=== PATIENT | female | born 1985 | race African-American/Black ===

== ENCOUNTER 2019-03-14 15:24 | Inpatient (IN) | payer MEDICAID, OTHER ==
[~2019-03-14] VITALS: Ht 170.2 cm; Wt 68.2 kg
[~2019-03-14 15:24] MED LIST: ATAZ150 PO; GABA-531 PO; QUET200T PO; RITO100C PO; TRUVT PO
[2019-03-14] MEDS ORDERED: ZOLPIDEM TARTRATE 10 MG TABLET PO PRN (18:15)
[2019-03-14] MEDS ORDERED: OLANZapine 5 MG RAPDIS TABLET PO PRN (18:15)
[2019-03-14] MEDS ORDERED: LORazepam 2 MG TABLET PO PRN (18:15)
[2019-03-14 18:52] LABS: AMPHET/METH SCREEN,URINE POSITIVE (NEGATIVE); BARBITURATE SCREEN, URINE NEGATIVE (NEGATIVE); BENZODIAZEPINES SCREEN,URINE NEGATIVE (NEGATIVE); CANNABINOID SCREEN,URINE POSITIVE (NEGATIVE); COCAINE SCREEN,URINE NEGATIVE (NEGATIVE); METHADONE SCREEN, URINE NEGATIVE (NEGATIVE); OPIATE SCREEN,URINE NEGATIVE (NEGATIVE)
[2019-03-14 18:53] LABS: PHENCYCLIDINE SCREEN,URINE NEGATIVE (NEGATIVE)
[2019-03-14 19:38] LABS: APPEARANCE,URINE CLEAR (CLEAR); BILIRUBIN,URINE NEGATIVE (NEGATIVE); GLUCOSE, URINE (UA) NEGATIVE (NEGATIVE); KETONES,URINE TRACE mg/dL (NEGATIVE); LEUKOCYTE ESTERASE ,URINE MODERATE (NEGATIVE); NITRATE,URINE NEGATIVE (NEGATIVE); OCCULT BLOOD,URINE SMALL (NEGATIVE); PH,URINE 5.5 (5.0-8.0); PROTEIN,URINE NEGATIVE (NEGATIVE); UROBILINOGEN,URINE 0.2 mg/dL (<=1.0)
[2019-03-14 19:59] LABS: BACTERIA,URINE None Seen /HPF (None Seen); RBC,URINE 0-2 /HPF (0-2)
[2019-03-14 20:00] LABS: SQUAMOUS EPITHELIAL CELL,UR Few /LPF (None Seen)
[2019-03-14] MEDS ORDERED: LORazepam 2 MG/ML VIAL ONE (20:41)
[2019-03-14] MEDS ORDERED: DiphenhydrAMINE HCL 50 MG/ML VIAL ONE (20:41)
[2019-03-14] MEDS ORDERED: LORazepam 2 MG/ML VIAL IM ONE (20:45)
[2019-03-14] MEDS ORDERED: HALOPERIDOL LACTATE 5 MG/ML VIAL IM ONE (20:45)
[2019-03-14] MEDS ORDERED: DiphenhydrAMINE HCL 50 MG/ML VIAL IM ONE (20:45)
[2019-03-14] MEDS ORDERED: PNEUMOCOCCAL VACCINE POLYVALENT 0.5 ML VIAL [PPSV23] IM ONE (21:00)
[2019-03-14] MEDS: OLANZapine 7.5 MG TABLET PO SCH (21:00)
[2019-03-14] MEDS ORDERED: INFLUENZA VIRUS VACCINE QVS 2019-20 (3YR+)/PF 60 MCG/0.5 ML SYRINGE IM ONE (21:00)
[2019-03-15] MEDS: RITONAVIR 100 MG TABLET PO SCH ×2 (06:53→07:00)
[2019-03-15] MEDS: EMTRICITABINE/TENOFOVIR 200-300 MG TABLET PO SCH ×2 (06:54→07:00)
[2019-03-15] MEDS: ATAZANAVIR SULFATE 300 MG CAPSULE PO SCH (06:54)
[2019-03-15] MEDS: GABAPENTIN 300 MG CAPSULE PO SCH ×3 (08:28→17:41)
[2019-03-15] MEDS: SULFAMETHOX/TRIMETH DS 800-160 MG/TABLET PO SCH ×2 (08:28→17:41)
[2019-03-15] MEDS ORDERED: ACETAMINOPHEN 325 MG TABLET PO PRN (12:15)
[2019-03-15] MEDS ORDERED: LOPERAMIDE HCL 2 MG CAPSULE PO PRN (12:15)
[2019-03-15] MEDS ORDERED: MAGNESIUM HYDROXIDE SUSPENSION 30 ML UDCUP PO PRN (12:15)
[2019-03-15] MEDS ORDERED: GuaiFENesin/D-METHORPHAN [SUGAR-FREE] 200-20MG/10 ML SYRUP UDCUP PO PRN (12:15)
[2019-03-15] MEDS ORDERED: MAG HYDROX/AL HYDROX/SIMETH ES 30 ML SUSPENSION UDCUP PO PRN (12:15)
[2019-03-15] MEDS ORDERED: PROMETHAZINE HCL 25 MG TABLET PO PRN (12:15)
[2019-03-15] MEDS ORDERED: TUBERCULIN, PURIFIED PROTEIN DERIVATIVE 5 TU/0.1 ML SYRINGE ID ONE (12:15)
[2019-03-15] MEDS ORDERED: HydrOXYzine PAMOATE 50 MG CAPSULE PO PRN (12:15)
[2019-03-15 16:54] VITALS: BP 135/90
[2019-03-15] MEDS: THIAMINE HCL 100 MG TABLET PO SCH (17:41)
[2019-03-15] MEDS: OLANZapine 7.5 MG TABLET PO SCH (21:35)
[2019-03-16] MEDS: EMTRICITABINE/TENOFOVIR 200-300 MG TABLET PO SCH (06:57)
[2019-03-16] MEDS: RITONAVIR 100 MG TABLET PO SCH (06:57)
[2019-03-16] MEDS: ATAZANAVIR SULFATE 300 MG CAPSULE PO SCH (06:57)
[2019-03-16] MEDS: GABAPENTIN 300 MG CAPSULE PO SCH ×3 (08:24→16:26)
[2019-03-16] MEDS: NALTREXONE HCL 50 MG TABLET PO SCH (08:25)
[2019-03-16] MEDS: THIAMINE HCL 100 MG TABLET PO SCH ×2 (08:25→16:26)
[2019-03-16] MEDS: SULFAMETHOX/TRIMETH DS 800-160 MG/TABLET PO SCH ×2 (08:25→16:26)
[2019-03-16] MEDS: FOLIC ACID 1 MG TABLET PO SCH (08:25)
[2019-03-16] MEDS: MULTIVITAMINS WITH MINERALS, THERAPEUTIC TABLET PO SCH (08:25)
[2019-03-16 18:17] VITALS: BP 140/92
[2019-03-16] MEDS: OLANZapine 10 MG TABLET PO SCH (20:39)
[2019-03-17 05:37] VITALS: BP 131/87
[2019-03-17] MEDS: ATAZANAVIR SULFATE 300 MG CAPSULE PO SCH (06:47)
[2019-03-17] MEDS: EMTRICITABINE/TENOFOVIR 200-300 MG TABLET PO SCH (06:47)
[2019-03-17] MEDS: RITONAVIR 100 MG TABLET PO SCH (06:47)
[2019-03-17 07:36] LABS: BASOPHILS % (AUTO) 0.3 % (0.0-2.0); EOSINOPHILS % (AUTO) 3.7 % (1.0-6.0); HEMATOCRIT 35.7 % (36-46); HEMOGLOBIN 11.9 g/dL (12.0-16.0); LYMPHOCYTES # (AUTO) 4.4 K/uL (1.0-4.8); LYMPHOCYTES % (AUTO) 64.3 % (22.0-44.0); MEAN CORPUSCULAR HEMOGLOBIN 30.1 pg (26.0-34.0); MEAN CORPUSCULAR HGB CONC 33.4 G/dL (31.0-37.0); MEAN CORPUSCULAR VOLUME 90 fL (80-100); MONOCYTES # (AUTO) 0.4 K/uL (0.1-1.0); MONOCYTES % (AUTO) 5.6 % (2.0-9.0); NEUTROPHILS # (AUTO) 1.8 K/uL (1.8-7.7); NEUTROPHILS % (AUTO) 26.1 % (40.0-70.0); PLATELET COUNT (AUTO) 96 K/uL (150-450); RED BLOOD CELL COUNT(AUTO) 3.97 MIL/uL (4.00-5.20); RED CELL DISTRIBUTION WIDTH 15.8 % (11.5-14.5)
[2019-03-17 08:09] LABS: ALBUMIN 3.4 g/dL (3.4-5.0); BILIRUBIN,TOTAL 0.4 mg/dL (0.1-1.0); CALCIUM, TOTAL 9.1 mg/dL (8.8-10.5); CHOL/HDL RATIO 7.9 (3.9-5.7); CREATININE 1.52 mg/dL (0.60-1.30); FREE T4 (FREE THYROXINE) 0.87 ng/dL (0.76-1.46); POTASSIUM 3.6 mmol/L (3.5-5.1); THYROID STIMULATING HORMONE 6.04 uIU/mL (0.36-3.74); TOTAL PROTEIN, SERUM 8.5 g/dL (6.4-8.2)
[2019-03-17 08:10] VITALS: BP 97/79
[2019-03-17 08:13] LABS: HEMOGLOBIN A1C 5.4 % (4.5-6.2)
[2019-03-17] MEDS: NALTREXONE HCL 50 MG TABLET PO SCH (09:12)
[2019-03-17] MEDS: GABAPENTIN 300 MG CAPSULE PO SCH ×3 (09:13→16:07)
[2019-03-17] MEDS: THIAMINE HCL 100 MG TABLET PO SCH ×2 (09:13→16:07)
[2019-03-17] MEDS: FOLIC ACID 1 MG TABLET PO SCH (09:13)
[2019-03-17] MEDS: MULTIVITAMINS WITH MINERALS, THERAPEUTIC TABLET PO SCH (09:13)
[2019-03-17] MEDS: SULFAMETHOX/TRIMETH DS 800-160 MG/TABLET PO SCH ×2 (09:13→16:07)
[2019-03-17 16:10] VITALS: BP 114/71
[2019-03-17] MEDS: OLANZapine 10 MG TABLET PO SCH (20:09)
[2019-03-18 06:19] VITALS: BP 121/78
[2019-03-18] MEDS: EMTRICITABINE/TENOFOVIR 200-300 MG TABLET PO SCH (06:58)
[2019-03-18] MEDS: RITONAVIR 100 MG TABLET PO SCH (06:58)
[2019-03-18] MEDS: ATAZANAVIR SULFATE 300 MG CAPSULE PO SCH (06:58)
[2019-03-18 08:05] VITALS: BP 118/69
[2019-03-18] MEDS: SULFAMETHOX/TRIMETH DS 800-160 MG/TABLET PO SCH ×2 (08:52→17:11)
[2019-03-18] MEDS: MULTIVITAMINS WITH MINERALS, THERAPEUTIC TABLET PO SCH (08:53)
[2019-03-18] MEDS: THIAMINE HCL 100 MG TABLET PO SCH ×2 (08:53→17:11)
[2019-03-18] MEDS: GABAPENTIN 300 MG CAPSULE PO SCH ×3 (08:53→17:11)
[2019-03-18] MEDS: FOLIC ACID 1 MG TABLET PO SCH (08:53)
[2019-03-18] MEDS: NALTREXONE HCL 50 MG TABLET PO SCH (08:53)
[2019-03-18] MEDS: OLANZapine 10 MG TABLET PO SCH (20:49)
[2019-03-19 03:19] VITALS: BP 123/65
[2019-03-19] MEDS: ATAZANAVIR SULFATE 300 MG CAPSULE PO SCH (06:47)
[2019-03-19] MEDS: RITONAVIR 100 MG TABLET PO SCH (06:47)
[2019-03-19] MEDS: EMTRICITABINE/TENOFOVIR 200-300 MG TABLET PO SCH (06:48)
[2019-03-19 08:16] VITALS: BP 114/68
[2019-03-19] MEDS: GABAPENTIN 300 MG CAPSULE PO SCH ×2 (08:41→12:35)
[2019-03-19] MEDS: MULTIVITAMINS WITH MINERALS, THERAPEUTIC TABLET PO SCH (08:41)
[2019-03-19] MEDS: FOLIC ACID 1 MG TABLET PO SCH (08:41)
[2019-03-19] MEDS: THIAMINE HCL 100 MG TABLET PO SCH ×2 (08:41→16:21)
[2019-03-19] MEDS: NALTREXONE HCL 50 MG TABLET PO SCH (08:41)
[2019-03-19] MEDS: SULFAMETHOX/TRIMETH DS 800-160 MG/TABLET PO SCH ×2 (08:41→16:20)
[2019-03-19 16:11] VITALS: BP 101/66
[2019-03-19] MEDS: GABAPENTIN 400 MG CAPSULE PO SCH (16:20)
[2019-03-19] MEDS: OLANZapine 10 MG TABLET PO SCH (20:43)
[2019-03-20 05:03] VITALS: BP 112/76
[2019-03-20] MEDS: ATAZANAVIR SULFATE 300 MG CAPSULE PO SCH (06:59)
[2019-03-20] MEDS: EMTRICITABINE/TENOFOVIR 200-300 MG TABLET PO SCH (06:59)
[2019-03-20] MEDS: RITONAVIR 100 MG TABLET PO SCH (06:59)
[2019-03-20] MEDS: FOLIC ACID 1 MG TABLET PO SCH (08:15)
[2019-03-20] MEDS: GABAPENTIN 400 MG CAPSULE PO SCH ×3 (08:15→16:43)
[2019-03-20] MEDS: NALTREXONE HCL 50 MG TABLET PO SCH (08:15)
[2019-03-20] MEDS: MULTIVITAMINS WITH MINERALS, THERAPEUTIC TABLET PO SCH (08:15)
[2019-03-20] MEDS: THIAMINE HCL 100 MG TABLET PO SCH ×2 (08:15→16:42)
[2019-03-20 11:22] LABS: HIV 1-2 SCREEN 4TH GEN W/RFLX Reactive (Non Reactive); HIV INTERPRETATION HIV-1 Positive; HIV-1 ANTIBODY(MULTISPOT) Positive (Negative); HIV-2 ANTIBODY(MULTISPOT) Negative (Negative)
[2019-03-20] MEDS ORDERED: GABA-533 PO (14:44)
[2019-03-20] MEDS ORDERED: NALT50TA PO (14:44)
[2019-03-20] MEDS ORDERED: OLAN10TA20 PO (14:44)
[2019-03-20 16:25] VITALS: BP 115/88
[2019-03-20] MEDS: OLANZapine 10 MG TABLET PO SCH (20:39)
[2019-03-21 03:58] VITALS: BP 102/72
[2019-03-21] MEDS: RITONAVIR 100 MG TABLET PO SCH (07:00)
[2019-03-21] MEDS: ATAZANAVIR SULFATE 300 MG CAPSULE PO SCH (07:00)
[2019-03-21] MEDS: EMTRICITABINE/TENOFOVIR 200-300 MG TABLET PO SCH (07:00)
[2019-03-21 08:14] VITALS: BP 100/60
[2019-03-21] MEDS: MULTIVITAMINS WITH MINERALS, THERAPEUTIC TABLET PO SCH (08:20)
[2019-03-21] MEDS: FOLIC ACID 1 MG TABLET PO SCH (08:20)
[2019-03-21] MEDS: NALTREXONE HCL 50 MG TABLET PO SCH (08:20)
[2019-03-21] MEDS: THIAMINE HCL 100 MG TABLET PO SCH (08:20)
[2019-03-21] MEDS: GABAPENTIN 400 MG CAPSULE PO SCH ×2 (08:20→13:06)
[2019-03-21] MEDS ORDERED: NALT50TA6 PO (09:27)
[2019-03-21] MEDS ORDERED: OLAN10TA3 PO (09:28)
[2019-03-21 16:13] VITALS: BP 134/60
== END 2019-03-21 18:43 | disposition home or self-care (01) | DRG 750 ==
LOC: EMS 15:26 → B2S 18:44 → B3A 22:23
PROVIDERS: ADMIT Psychiatry & Neurology Psychiatry; ATTEND Psychiatry & Neurology Psychiatry
DX: F25.0 Schizoaffective disorder, bipolar type (principal); Z59.0 Homelessness; D64.9 Anemia, unspecified; F10.10 Alcohol abuse, uncomplicated; F12.90 Cannabis use, unspecified, uncomplicated; F15.10 Other stimulant abuse, uncomplicated; F17.210 Nicotine dependence, cigarettes, uncomplicated; G47.00 Insomnia, unspecified; N39.0 Urinary tract infection, site not specified; Z53.20 Procedure and treatment not carried out because of patient's decision for unspecified reasons; F41.9 Anxiety disorder, unspecified; R45.87 Impulsiveness; Z91.19 Patient's noncompliance with other medical treatment and regimen; Z28.29 Immunization not carried out because of patient decision for other reason
CPT/HCPCS: 80074; 83036; 84439; 84443; 86361; 86701; 86702; 87389; J1200; J1630; J2060